=== PATIENT | female | born 1940 | race Caucasian/White ===

== ENCOUNTER → 2018-01-01 14:01 | Outpatient (CLI) | payer BC, SELFPAY | PROVIDERS: PCP Internal Medicine; Visit Provider Internal Medicine | DX: M81.0 Age-related osteoporosis without current pathological fracture (principal); Z78.0 Asymptomatic menopausal state; Z87.891 Personal history of nicotine dependence | CPT/HCPCS: 77080 ==

== ENCOUNTER → 2018-09-30 17:21 | Outpatient (CLI) | payer BC, SELFPAY ==
--- NOTE | 2018-09-30 | DI.MG.S_ITS ---
BILATERAL DIGITAL SCREENING MAMMOGRAM 3D/2D WITH CAD: 09/30/2018 CLINICAL: Routine screening. Comparison is made to exams dated: 05/10/2016 mammogram - [facility], 01/14/2014 mammogram, 10/30/2012 mammogram, 07/12/2011 mammogram, and 01/24/2011 mammogram - [facility]. The tissue of both breasts is heterogeneously dense. This may lower the sensitivity of mammography. Current study was also evaluated with a Computer Aided Detection (CAD) system. There are benign vascular calcifications in both breasts. No significant masses, calcifications, or other findings are seen in either breast. There has been no significant interval change. IMPRESSION: There is no mammographic evidence of malignancy. A 1 year screening mammogram is recommended. This exam was interpreted at Station ID: [id number]. NOTE: For mammograms, a report in lay terms will be sent to the patient. Approximately 15% of breast malignancies will not be visualized mammographically. In the management of a palpable breast mass, a negative mammogram must not discourage biopsy of a clinically suspicious lesion. Electronically Signed By: Justyn khan/ramon:10/01/2018 19:07:53 letter sent: Normal Exam ACR BI-RADS Category 2: Benign Finding(s) 3342F
== END ==
PROVIDERS: PCP Internal Medicine; Visit Provider Internal Medicine
DX: Z13.21 Encounter for screening for nutritional disorder (principal)
CPT/HCPCS: 77063; 77067

== ENCOUNTER → 2020-12-20 13:22 | Outpatient (CLI) | payer BC, SELFPAY ==
[2020-12-20 14:48] LABS: Alanine Aminotransferase 103 IU/L (<35); Albumin 4.2 g/dL (3.5-5.0); Albumin Globulin Ratio 1.7 (1.0-2.8); Alkaline Phosphatase 299 U/L (38-126); Aspartate Aminotransferase 162 IU/L (14-36); BUN Creatinine Ratio 10.1 (6-22); Bilirubin Total 2.5 mg/dL (0.2-1.3); Blood Urea Nitrogen 7 mg/dL (7-17); Calcium 9.4 mg/dL (8.4-10.2); Carbon Dioxide 26 mmol/L (22-32); Chloride 96 mmol/L (98-107); Estimated Glomerular Filt Rate > 60.0 mL/min (>60); Globulin 2.5 g/dL (1.7-4.1); Glucose 100 mg/dL (80-110); HEMOLYSIS < 15 (0-50); Potassium 4.4 mmol/L (3.4-5.1); Sodium 131 mmol/L (137-145); Total Protein 6.7 g/dL (6.3-8.2)
--- NOTE | 2020-12-20 14:53 | DI.CT.S_ITS ---
PROCEDURE: CT ABDOMEN PELVIS W CON INDICATIONS: Left lowerquadrant pain, rt flank pain, suprapubic pain TECHNIQUE: After the administration of oral and IV contrast, axial sections were acquired from the lung bases to the pubic symphysis. Coronal and sagittal reformats were performed. For radiation dose reduction, the following was used: automated exposure control, adjustment of mA and/or kV according to patient size. COMPARISON: None. FINDINGS: Image quality: Excellent. Lung bases: Streaky opacity at the lung bases. Heart: No significant findings. ABDOMEN: Liver: Suspect hepatic steatosis. Focal fatty infiltration at the falciform ligament. No suspicious lesion is identified. Gallbladder: Surgically absent. Biliary ducts: Unremarkable. Pancreas: No peripancreatic fluid collection. Spleen: No splenomegaly. Adrenal Glands: No nodule. Kidneys and Ureters: No hydronephrosis. Stomach and Bowel: Diverticulosis. Inflammatory change surrounding the sigmoid colon, (). No abscess demonstrated at this time. No small bowel obstruction. The appendix is not definitely seen. Peritoneum: No abnormal intraperitoneal fluid. No free air. Ventral Wall: No hernia. Abdominal Nodes: No retroperitoneal or mesenteric adenopathy by size criteria. Vessels: Aorta and inferior vena cava are normal in size. PELVIS: Pelvic Organs: Trace free fluid in the pelvis likely reactive. Bladder: Unremarkable. Pelvic Nodes: No enlarged lymph nodes. Miscellaneous: No inguinal hernias are seen. Bones: Grade 1 anterolisthesis of L4 on L5. DDD most pronounced at T11-T12 and L4-L5. IMPRESSION: 1. Sigmoid colon diverticulitis, moderate severity. No abscess at this time. 2. Streaky opacity at the lung bases. Likely atelectasis or scarring. Comment: Findings were conveyed to Laurie with answering service of Dr. Briana Foreman at the time of dictation. Dictated by: Justyn Smith M.D. on 12/20/2020 at 16:28 Approved by: Justyn Smith M.D. on 12/20/2020 at 16:41
== END ==
PROVIDERS: PCP Internal Medicine; Referring Provider Internal Medicine; Visit Provider Internal Medicine
DX: R10.32 Left lower quadrant pain (principal); R19.7 Diarrhea, unspecified; R10.33 Periumbilical pain; R10.9 Unspecified abdominal pain; K57.32 Diverticulitis of large intestine without perforation or abscess without bleeding
CPT/HCPCS: 36415; 74177; 80053

== ENCOUNTER → 2021-05-19 10:30 | Outpatient (CLI) | payer BC, SELFPAY ==
--- NOTE | 2021-05-19 | DI.MG.S_ITS ---
BILATERAL DIGITAL SCREENING MAMMOGRAM 3D/2D WITH CAD: 05/19/2021 CLINICAL: Routine screening. Comparison is made to exams dated: 09/30/2018 mammogram, 05/10/2016 mammogram - [facility], and 01/14/2014 mammogram - [facility]. The tissue of both breasts is heterogeneously dense. This may lower the sensitivity of mammography. Current study was also evaluated with a Computer Aided Detection (CAD) system. There are benign calcifications in both breasts. There also are benign vascular calcifications in both breasts. There are mole markers on both breasts. No significant masses, calcifications, or other findings are seen in either breast. There has been no significant interval change. IMPRESSION: BENIGN There is no mammographic evidence of malignancy. A 1 year screening mammogram is recommended. This exam was interpreted at Station ID: [id number]. NOTE: For mammograms, a report in lay terms will be sent to the patient. Approximately 15% of breast malignancies will not be visualized mammographically. In the management of a palpable breast mass, a negative mammogram must not discourage biopsy of a clinically suspicious lesion. Electronically Signed By: Desmond Saxena acr/penrad:05/19/2021 13:11:08 letter sent: Normal Exam ACR BI-RADS Category 2: Benign Finding(s) 3342F
== END ==
PROVIDERS: PCP Internal Medicine; Referring Provider Internal Medicine; Visit Provider Internal Medicine
DX: Z12.31 Encounter for screening mammogram for malignant neoplasm of breast; Z13.820 Encounter for screening for osteoporosis; M81.0 Age-related osteoporosis without current pathological fracture; Z78.0 Asymptomatic menopausal state
CPT/HCPCS: 77063; 77067; 77080; 77086

== ENCOUNTER → 2023-07-18 13:40 | Outpatient (CLI) | payer BC, SELFPAY ==
--- NOTE | 2023-07-18 13:41 | DI.RAD.S_ITS ---
PROCEDURE: XR DEXA AXIAL SKELETON INDICATIONS: Age-related osteoporosis COMPARISON: [facility], CR, XR DEXA AXIAL SKELETON, 05/19/2021, 11:24. FINDINGS: Lumbar Spine: Bone mineral density 0.936 g/cm2, T score -1.0. Left Hip: Bone mineral density 0.634g/cm2, T score -2.5. Left Femoral Neck: Bone mineral density 0.561 g/cm2, T score -2.6. Right Hip: Bone mineral density 0.563 g/cm2, T score -3.1. Right Femoral Neck: Bone mineral density 0.494 g/cm2, T score -3.2. Fracture Risk Calculation (when applicable): 10-year fracture risk of a major osteoporotic fracture and of a hip fracture was not calculated secondary to presence of are osteoporosis. (T score greater or equal to -1.0 to: NORMAL) (T score from -1.1 to -2.4: OSTEOPENIA) (T score less than or equal to -2.5: OSTEOPOROSIS) IMPRESSION: Osteoporosis. Follow-up guidelines as follows: Osteoporosis: Consider a repeat DEXA and Vertebral Fracture Assessment (VFA) exam in 2 years or sooner if medically necessary, to reassess this patient's status. Osteopenia: Consider a repeat DEXA in 2-3 years to reassess this patient's status, or if there is a new clinical indication. Normal: Consider a repeat DEXA in 5 years or sooner, or if there is a new clinical indication. All treatment decisions require clinical judgment and consideration of individual patient factors, including patient preferences, comorbidities, previous drug use, risk factors not captured in the FRAX model (e.g., frailty, falls, vitamin D deficiency, increased bone turnover, interval significant decline in bone density ) and possible under- or over-estimation of fracture risk by FRAX. In addition, the NOF Guide recommends that FDA-approved medical therapies be considered in postmenopausal women and men age >= 50 years with a: * Hip or vertebral (clinical or morphometric) fracture * T-score of <=-2.5 at the spine or hip * Ten-year fracture probability by FRAX of >= 3% for hip fracture or >=20% for major osteoporotic fracture. People with diagnosed cases of osteoporosis or at high risk for fracture should have regular bone mineral density tests. For patients eligible for Medicare, routine testing is allowed once every 2 years. The testing frequency can be increased to one year for patients who have rapidly progressing disease, those who are receiving or discontinuing medical therapy to restore bone mass, or have additional risk factors. Dictated by: Yasmani Cruz M.D. on 07/18/2023 at 15:04 Approved by: Yasmani Cruz M.D. on 07/18/2023 at 15:06
== END ==
PROVIDERS: PCP Internal Medicine; Referring Provider Internal Medicine; Visit Provider Internal Medicine
DX: M81.0 Age-related osteoporosis without current pathological fracture (principal)
CPT/HCPCS: 77080

== ENCOUNTER → 2023-11-21 10:00 | Outpatient (CLI) | payer BC, SELFPAY ==
--- NOTE | 2023-11-21 14:40 | ST.SWALLOW ---
Visit Care Team Role Provider Type Briana Foreman MD Attending Provider Non-Staff Primary Care Provider Referring Provider Specialty: Internal Medicine Address: [address] [place] [address], [phone] Email: Modified Barium Swallow Study [employer] Modified Barium Swallow Study Start: 11/21/23 14:01 Freq: Status: Active Protocol: Document 11/21/23 14:01 LNK (Rec: 11/21/23 14:40 LNK [id number]) Modified Barium Swallow Study Total Time Visit Start Time 10:00 Visit Stop Time 10:30 Total Visit Minutes [address] Foreman Setting Setting Outpatient Care Patient Information Identification Type Name,Date of Patient History Pt was seen for a Modified Barium Swallow Study at the referral of Dr Foreman. According to the pt she had been experiencing difficulty with swallowing. She stated that the wallowing improved following a diet change and relining and refitting her dentures. She still well have difficulty with swallowing, but not as frequently. Pt reported a PMH that includes: GERD (not medicated), pre-Barretts esophagus, Sjogren's Disease Celiac disease and asthma. Pt reports a pressure in her sternal area after she swallows. She noted that if she drinks water, the pressure will dissipate. Subjective Observations Pt was seated in the fluoroscopy chair with directions and procedures described for her. She indicated she understood and agreed to proceed. Patient Positioning Position View Lat-A/P Imaging Lateral View Textures Administered Trials Presented Thin Liquid via Spoon (IDDSI 0 ),Thin Liquid via Cup (IDDSI 0 ),Soft & Bite-sized (IDDSI, Regular (IDDSI 7) Barium Tablet Yes The IDDSI Framework Protocol: IDDSI.1 Oral Impairment Source: The Modified Barium Swallow Impairment Profile (MBSImP??) Lip Closure No labial escape Tongue Control During Bolus Hold Cohesive bolus between tongue to palatal seal Bolus Preparation/Mastication Timely & efficient chewing & mashing Bolus Transport/Lingual Motion Brisk tongue motion Oral Residue Trace residue lining oral structures Location Tongue Initiation of Pharyngeal Swallow Bolus head at posterior laryngeal surface of epiglottis Additional Oral Impairment Observations *OME and DKS were observed to be WNL. *Upper/Lower dentures in place and in good hygiene *Mastication observed with rotary chew pattern. *Good bolus formation, control and AP transition. Pharyngeal Impairment Source: The Modified Barium Swallow Impairment Profile (MBSImP??) Soft Palate Elevation No bolus between soft palate & pharyngeal wall Laryngeal Elevation Comp.sup.move.thyroid cart.w/ comp.approx.arytenoids to epiglot petiole Anterior Hyoid Excursion Complete anterior movement Epiglottic Movement Complete inversion Laryngeal Vestibular Closure Complete; no air/contrast in laryngeal vestibule Pharyngeal Stripping Wave Present - complete Pharyngoesophageal Segment Opening Complete distention & complete duration; no obstruction of flow Tongue Base Retraction No contrast between tongue base & posterior pharyngeal wall Pharyngeal Residue Complete pharyngeal clearance Additional Pharyngeal Impairment Pharyngeal phase of swallow Observations was observed to be WNL A soft tissue bulge was noted at the upper esophagus proximal to the UES and observed across all trials. A/P View Textures Administered Trials Presented Thin Liquid via Spoon (IDDSI 0 ) The IDDSI Framework Protocol: IDDSI.1 A/P View Observations Pharyngeal Contraction Complete Esophageal Clearance Upright Position Esophageal retention w/ regtrograde flow below pharyngoesoph segment Vocal Fold Function Good Esophageal Function Poor Motility,Reverse Peristalsis,Stasis,Narrowing Additional A-P Observations *Esophageal residue retention of prior trials observed from sternal area to the stomach *Slowed clearing of esophagus; pt noted sternal pressure at this time *Stasis cleared with water; refroflow was observed below UES Clinical Impressions Dysphagia Type Esophageal Findings Oropharyngeal phases of swallowing was noted to be WNL ; Esophageal phase demonstrated retro flow of contents, esophageal stasis with slowed clearing. A soft tissue bulge was observed across all trials just below the UES. Patient Appropriate for Therapy No Recommendations Diet Comments no diet change recommended Aspiration Precautions Additional Precautions eat slowly, small bites. alternate liquids/solids Treatment Plan Recommended Referrals GI Consult Therapy Strategy Recommendations Sitting Upright (90 deg),Small Bites and Sips,Alternate Liquids/Solids
== END ==
PROVIDERS: PCP Internal Medicine; Referring Provider Internal Medicine; Visit Provider Internal Medicine
DX: R13.10 Dysphagia, unspecified (principal); Z91.89 Other specified personal risk factors, not elsewhere classified
CPT/HCPCS: 74230; 92611